=== PATIENT | male | born 1960 | race Caucasian/White ===

== ENCOUNTER 2017-06-02 09:40 | Inpatient (IN) | payer OTHER ==
[~2017-06-02] VITALS: Ht 170.2 cm; Wt 88.9 kg
[~2017-06-02 09:40] MED LIST: CENTRUM1 TA2 PO; CLINDAMYCIN HC300 MG PO; COLACE100 MG PO; ECO81 PO; FER300 PO; GLIPIZIDE10 M2 PO; GLIPIZIDE10 MG PO; LAC PO; LIPI10 PO; LISINOPRIL30 MG PO; METFORMIN HCL1000 MG PO; NORCO1 TA2 PO; PRA20 PO; THERAGRAN-M1 TA4 PO; TYLENOL EXTRA500 M2 PO; VITAMIN C500 M4 PO; ZESTRIL20 MG PO
--- NOTE | 2017-06-02 10:13 | NUR ---
PT C/O SOB, BLE EDEMA, AND ABD DISTENTION X3 MONTHS. PT IS AAOX4, RESP EVEN AND UNLABORED, RA. LS CTA ALYSSA. SPEAKING IN FULL SENTENSES. ABD NOTED TO BE FIRM AND ROUND. PT DENIES ABD PAIN, DENIES N/V/D. PT REPORTS WEIGHT GAIN OF 40LBS IN PAST 2 MONTHS WITH NO CHANGE IN DIET. PT REPEORTS HAVING KIDNEY PROBLEMS BUT DENIES LIVER PROBLEMS OR CHF. EDEMA NOTED TO BLE FROM KNEES TO FEET, PT REPORTS SLIGHT PAIN NEAR GROIN. PT RPEORTS NO URINARY PAIN OR DIFFICULTY URINATING. PT STS SEEING PCP TODAY AND BEING TOLD TO COME TO ER. PT ACCOMPANIED BY .
--- NOTE | 2017-06-02 10:27 | NUR ---
EMT AT BEDSIDE FOR EKG
--- NOTE | 2017-06-02 10:40 | NUR ---
METAL BONDING PRESS OPERATOR AT BEDSIDE FOR BLOOD DRAW
[2017-06-02 10:47] LABS: BASOPHIL % 0.2 % (0-2); PLATELET COUNT 213 x10^3mcL (130-400); RED CELL DISTRIBUTION WIDTH 14.1 % (11.5-14.5)
--- NOTE | 2017-06-02 10:59 | NUR ---
DR VELIZ AT BEDSIDE FOR MSE
[2017-06-02 11:04] LABS: CALCIUM 8.8 mg/dL (8.5-10.1); CARBON DIOXIDE 24.2 mmol/L (21-32); CREATININE SERUM 2.4 mg/dL (0.7-1.3); POTASSIUM SERUM 4.5 mmol/L (3.5-5.1)
[2017-06-02 11:08] LABS: ALBUMIN 3.7 g/dL (3.4-5.0); BILIRUBIN TOTAL 0.54 mg/dL (0.20-1.00); TOTAL PROTEIN, SERUM 7.5 g/dL (6.4-8.2)
[2017-06-02] MEDS ORDERED: LANTUS SOLOS100 U/M1 (11:19)
[2017-06-02] MEDS ORDERED: NOR5 PO (11:20)
[2017-06-02] MEDS ORDERED: ATENOLOL25 MG PO (11:20)
[2017-06-02] MEDS ORDERED: IRON325 M4 PO (11:20)
[2017-06-02] MEDS ORDERED: LASIX40 MG PO (11:21)
[2017-06-02] MEDS ORDERED: NATEGLINIDE120 M1 PO (11:21)
[2017-06-02] MEDS ORDERED: RELION HUMUL100 U/M2 (11:22)
--- NOTE | 2017-06-02 11:23 | NUR ---
MED REC UPDATED WITH PT RX BOTTLES. PT REMAINS IN STABLE CONDITION. RESP EVEN AND UNLABORED, RA. VS STABLE. NAD NOTED.
[2017-06-02 12:08] LABS: UA SPECIFIC GRAVITY 1.015 (1.005-1.035); microscopic required? YES; urine erythrocyte 2+ (NEGATIVE)
--- NOTE | 2017-06-02 12:24 | NUR ---
PT MEDICATED PER ORDER. PT IN STABLE CONDITION WITH NO C/O PAIN. VS STABLE. NAD NOTED
--- NOTE | 2017-06-02 12:25 | NUR ---
REPORT CALLED TO IVETH RAY, REQUESTING CALL BACK IN 5 MINS
--- NOTE | 2017-06-02 12:36 | NUR ---
REPORT GIVEN TO IVETH RAY IN MST FOR CONTINUITY OF CARE
--- NOTE | 2017-06-02 12:37 | NUR ---
PT AWAITING VERBAL OK TO MOVE TO MST FROM DR ESCAMILLA
--- NOTE | 2017-06-02 13:04 | NUR ---
PT REMAINS IN STABLE CONDITION. RESP EVEN AND UNLABORED, RA. VS STABLE, NAD NOTED. PT NOTED TO HAVE APPROX 300ML OUTPUT OF URINE SINCE LASIX ADMINISTRATION. PT AWAITING VERBAL OK TO MOVE TO MST FROM DR ESCAMILLA
[2017-06-02 13:22] LABS: PHOSPHOROUS 4.1 mg/dL (2.5-4.9)
[2017-06-02 13:29] LABS: T3 TOTAL 0.73 ng/mL
[2017-06-02 13:30] LABS: FREE T4 1.04 ng/dL (0.76-1.46); T4(THYROXINE) 5.5 ug/dL (4.7-13.3)
[2017-06-02 13:35] VITALS: BP 157/79
--- NOTE | 2017-06-02 13:38 | NUR ---
PT ARRIVED ON THE UNIT, A+OX4, NO RESPIRATORY DISTRESS NOTED, PLACED ON TELE #29, NSR, HR: 74, VITAL SIGNS STABLE. DENIES PAIN.
--- NOTE | 2017-06-02 13:39 | NUR ---
RECEIVED PT FROM ED VIA SANTIAGO. ORIENTED PT TO ROOM AND SURROUNDINGS. IV NOTED TO LAC PATENT AND INTACT. TELE 29 PLACED ON PT READING NSR. INSTRUCTED PT ON THE USE OF CALL LIGHT FOR ASSISTANCE. ENDORSED PT TO PRIMARY NURSE IVETH
--- NOTE | 2017-06-02 14:14 | NUR ---
PT RESTING IN BED, NO RESPIRATORY DISTRESS NOTED, DENIES PAIN, SOB, NAUSEA, AND HEADACHE.
--- NOTE | 2017-06-02 14:30 | NUR ---
INFORMED DR VALERO THAT PT WAS ADMITTED TO UNIT AND WAITING TO SEE HIM.
--- NOTE | 2017-06-02 15:01 | NUR ---
PT RESTING IN BED, NO RESPIRATORY DISTRESS NOTED, DENIES PAIN, NAUSEA, SOB, AND HEADACHE.
--- NOTE | 2017-06-02 15:50 | NUR ---
PT RESTING IN BED, NO RESPIRATORY DISTRESS NOTED, DENIES PAIN, NAUSEA, SOB, AND HEADACHE.
[2017-06-02 17:09] VITALS: BP 161/80
--- NOTE | 2017-06-02 17:15 | NUR ---
PT SITTING AT EDGE OF BED, NO RESPIRATORY DISTRESS NOTED, DENIES PAIN, NAUSEA, SOB, AND HEADACHE. PT REPORTS URINATING 9 TIMES, CLEAR, YELLOW.
--- NOTE | 2017-06-02 17:55 | NUR ---
PT RESTING IN BED, NO RESPIRATORY DISTRESS NOTED, DENIES PAIN, NAUSEA, SOB, AND HEADACHE.
--- NOTE | 2017-06-02 18:07 | NUR ---
DR VALERO NEEDS PT TO BRING IN HOME MED LIST. WILL ENDORSE TO DELIVERY TABLE OPERATOR NURSE.
--- NOTE | 2017-06-02 18:29 | NUR ---
PT SITTING AT EDGE OF BED, NO RESPIRATORY DISTRESS NOTED, DENIES PAIN, NAUSEA, SOB, AND HEADACHE. PT WROTE HOME MEDICATIONS ON [place], NURSE GAVE LIST TO DR VALERO.
--- NOTE | 2017-06-02 19:30 | NUR ---
PT LYING IN BED WITH FAMILY AT BEDSIDE, A/O X4. ON TELE #29, NSR, DENIES CHEST PAIN. PULSES PALPABLE, 2+ EDEMA NOTED TO BLE. DIMINISHED BREATH SOUNDS AUSCULTATED ON BILATERAL BASES. PT BREATHING FREELY ON RA, DENIES SOB AT THIS TIME. PT REPORTS LAST BM-06/01, DIARRHEA. ABD IS SOFT AND ROUND. BRP. AMBULATORY WITHOUT ASSIST. SKIN IS INTACT. PT DENIES PAIN AT THIS TIME. SALINE LOCK TO LAC, PATENT AND INTACT. BED IN LOWEST SETTING, SIDE RAILS UP X2, CALL LIGHT PLACED WITHIN REACH. WILL CONTINUE TO MONITOR.
[2017-06-02 21:00] VITALS: BP 160/80
[2017-06-02 21:05] LABS: RED BLOOD CELLS 3.23 M/mm3 (4.52-5.90)
[2017-06-02 21:09] LABS: IRON 33 ug/dL (65-170); TOTAL IRON BINDING CAPACITY 227 ug/dL (250-450)
[2017-06-02 21:17] VITALS: BP 160/80
[2017-06-03] VITALS (7 sets, daily range): BP systolic 114–166; BP diastolic 58–85
--- NOTE | 2017-06-03 01:50 | NUR ---
PT ASLEEP, BUT EASILY AROUSABLE. NO RESP DISTRESS NOTED, NO SIGNS OF PAIN OBSERVED. WILL CONTINUE TO MONITOR.
--- NOTE | 2017-06-03 06:05 | NUR ---
PT REPORTS SLEEPING WELL THROUGHOUT THE NIGHT. PT DENIES PAIN AND SOB AT THIS TIME. PT DENIES HAVING N/V. STRICT I/O MAINTAINED. SALINE LOCK TO LAC, PATENT AND INTACT. ALL NEEDS MET. WILL ENDORSE CARE TO AM NURSE.
[2017-06-03 06:33] LABS: BASOPHIL % 0.2 % (0-2); PLATELET COUNT 178 x10^3mcL (130-400); RED CELL DISTRIBUTION WIDTH 14.5 % (11.5-14.5)
[2017-06-03 06:36] LABS: CALCIUM 8.5 mg/dL (8.5-10.1); CARBON DIOXIDE 22.4 mmol/L (21-32); CREATININE SERUM 2.2 mg/dL (0.7-1.3); MAGNESIUM 1.9 mg/dL (1.8-2.4); PHOSPHOROUS 4.1 mg/dL (2.5-4.9); POTASSIUM SERUM 4.1 mmol/L (3.5-5.1)
--- NOTE | 2017-06-03 07:06 | NUR ---
PT SEEN, RESTING IN THE BED, ALERT AND ORIENTED, DENIES HEADACHE OR DIZZINESS, BREATHING EVEN AND UNLABORED, NO SOB, LUNG SOUNDS DIMINISHED, ON ROOM AIR WITH NO RESP DISTRESS NOTED, ON TELE#29 NSR, DENIES CHEST PAIN, SL TO LAC, PULSES PALPABLE, EDEMA NOTED TO BLE, AMBULATORY WITH STEADY GAIT, ABD SOFT AND NON-DISTENDED WITH ACTIVE BS, NO BM AT THIS TIME, VOIDING FREELY, NO DISTRESS NOTED, WILL KEEP TO MONITOR
--- NOTE | 2017-06-03 08:07 | NUR ---
PT IS SITTING UP ON THE CHAIR AND HAVING BREAKFAST, TOLERATED WELL.
--- NOTE | 2017-06-03 10:56 | NUR ---
RECEIVED REPORT FROM HARVEY RAY AT BEDSIDE. CARE ENDORSED AT THIS TIME. PT REMAINS ALERT. DENIES PAIN. TELE #29 SINUS RHYTHM. RESP 18 EVEN. BREATH SOUNDS CLEAR. NO COUGH OR SOB. PT REPORTS "SOB BETTER." ABD ROUNDED BUT SOFT, BOWEL TONES PRESENT. LBM THIS AM "LOOSE." VOIDED 600CC YELLOW URINE. EDEMA 3+ BLE. ELEVATED ON PILLOWS TO FLOAT HEELS. SALINE LOCK LAC PATENT. SIDE RAILS UP X2. CALL LIGHT IN REACH.
--- NOTE | 2017-06-03 10:56 | NUR ---
BEDSIDE HANDOFF REPORT GIVEN TO AIDEE-FLOR, PER DR VALERO PT OKAY TO SHOWER.
--- NOTE | 2017-06-03 14:43 | NUR ---
PT WAS GIVEN LOSARTAN 25MG PO; BP = 155/76, MAP = 91, HR = 66. NO SWALLOWING DIFFICULTY NOTED. WILL CONTINUE TO MONITOR.
--- NOTE | 2017-06-03 16:45 | NUR ---
LQL=[id number]. NO RISS COVERAGE DUE. MED WITH LASIX 20MG IVP DOSE INCREASED TO BID. INSTRUCTED WITH MEDICATION, SCHEDULE AND NEED TO MONITOR URINE OUTPUT AND DAILY WEIGHTS. VERBALIZED UNDERSTANDING.
--- NOTE | 2017-06-03 19:30 | NUR ---
REC'D PT RESTING IN BED. PT IS AAOX4. TELE #29 NSR. PT DENIES PAIN OR DISCOMFORT. LUNG SOUNDS DIM BASES. NO SOB NOTED. 1+ EDEMA NOTED TO BLE. BS ACTIVE X4. IV SALINE LOCK TO LAC. INTACT AND PATENT. SAFETY AND COMFORT MEASURES IN PLACE. BED IN LOWEST POSITION. CALL LIGHT WITHIN REACH. WILL CONTINUE TO MONITOR.
--- NOTE | 2017-06-04 04:52 | NUR ---
PT RESTING IN BED. NO SIGNIFICANT CHANGES DURING SHIFT. NO DISTRESS NOTED. CALL LIGHT WITHIN REACH. WILL CONTINUE TO MONITOR.
[2017-06-04 05:24] VITALS: BP 131/66
[2017-06-04 06:34] LABS: CALCIUM 8.4 mg/dL (8.5-10.1); CARBON DIOXIDE 23.5 mmol/L (21-32); CREATININE SERUM 2.4 mg/dL (0.7-1.3); POTASSIUM SERUM 4.3 mmol/L (3.5-5.1)
--- NOTE | 2017-06-04 07:30 | NUR ---
RECEIVED PT IN BED, A/A/O X 4, CALM, COOPERATIVE, ABLE TO MAKE NEEDS KNOWN. PT ON TELE # 29, SHOWING SR HR = 65, DENIES CHEST PAIN. BILATERAL RADIAL AND PEDAL PULSES PRESENT, EDEMA +1, NON-PITTING TO BLE. LUNG SOUNDS CLEAR ON BILATERAL UPPER LOBES, DIMINISHED ON BILATERAL LOWER LOBES. CHEST RISING SYMMETRICALLY, NO RESPIRATORY DISTRESS NOTED. BOWEL SOUNDS NORMOACTIVE X 4 QUADS, ABDOMEN SOFT, NON-TENDER. VOIDS FREELY, NO DYSURIA. AMBULATES WITHOUT IMPAIRMENT. SKIN CLEAR. DENIES PAIN AT THIS TIME. PT HAS SALINE LOCK @ LAC. SIDE RAILS UP X 2, LOW BED, SIDE RAILS UP X 2. WILL CONTINUE TO MONITOR.
--- NOTE | 2017-06-04 07:55 | NUR ---
DR METZGER, RESIDENTS, CHARGE NURSE, AND ASSIGNED NURSE CAME IN TO SEE PT; DISCUSSED CARE PLAN FOR TODAY, WELL POSSIBLE DISCHARGE TO HOME. PT VERBALIZED UNDERSTANDING.
--- NOTE | 2017-06-04 09:06 | NUR ---
PT RECEIVED LASIX IVP AND THE REST OF HIS PO MEDS; NO S/S DYSPHAGIA. UO=104/79, AOK=650. WILL CONTINUE TO MONITOR.
[2017-06-04 10:11] VITALS: BP 150/79
[2017-06-04] MEDS ORDERED: COZ25 PO (10:23)
[2017-06-04 10:56] VITALS: BP 150/79
--- NOTE | 2017-06-04 11:30 | NUR ---
WENT OVER D/C INSTRUCTIONS AND TEACHING WITH PT, INCLUDING DM, CKD, HTN, DIABETIC NEPHROPATHY, HYDRATION, PROPER DIET, AND EXERCISE. PT VERBALIZED UNDERSTANDING. GAVE COPY OF D/C INSTRUCTIONS.
--- NOTE | 2017-06-04 11:45 | NUR ---
PT'S CAME IN TO ACCOUNT DEVELOPER PT; PT GOT DRESSED, JONES 18G 1.25" IV CATH D/C'D FROM LAC, NO BLEEDING, REDNESS, PAIN, OR DISCOMFORT AT SITE. PRESSURE MAINTAINED FOR 5 MINUTES. COVERED SITE WITH GAUZE, SECURED WITH TAPE. PT'S ID BAND REMOVED, TELE MONITOR # 29 RETURNED TO TELE STATION. PT STATED THAT HE DOES NOT NEED W/C TO GO DOWN TO LOB. ACCOMPANIED BOTH PT AND TO [facility], PT NO AMBULATED WITHOUT IMPAIRMENT, NO S/S RESPIRATORY DISTRESS. PT [facility], AND WAS TAKEN TO A PRIVATE CAR TO GO HOME.
[2017-06-04 11:50] VITALS: Ht 170.2 cm; Wt 88.9 kg
--- NOTE | 2017-06-04 12:20 | NUR ---
RBS = 109; NO COVERAGE ON RISS REQUIRED.
== END 2017-06-04 12:00 | disposition home or self-care (01) | DRG 682 ==
LOC: ED 09:40 → DU 12:04
PROVIDERS: Emergency Medicine; Internal Medicine; ADMIT Family Medicine
DX: I12.9 Hypertensive chronic kidney disease with stage 1 through stage 4 chronic kidney disease, or unspecified chronic kidney disease (principal); N17.0 Acute kidney failure with tubular necrosis; N18.4 Chronic kidney disease, stage 4 (severe); J90 Pleural effusion, not elsewhere classified; E11.22 Type 2 diabetes mellitus with diabetic chronic kidney disease; E11.65 Type 2 diabetes mellitus with hyperglycemia; Z79.4 Long term (current) use of insulin; Z90.49 Acquired absence of other specified parts of digestive tract; Z83.3 Family history of diabetes mellitus; J45.909 Unspecified asthma, uncomplicated; E78.5 Hyperlipidemia, unspecified; R31.9 Hematuria, unspecified; D64.9 Anemia, unspecified
CPT/HCPCS: 83880; 84439; J1815; J1940; J7030; J7613; Q0092

== ENCOUNTER 2019-02-19 17:47 | Inpatient (IN) | payer OTHER ==
[~2019-02-19] VITALS: Ht 170.2 cm; Wt 93.9 kg
[~2019-02-19 17:47] MED LIST changes: +ATENOLOL25 MG PO; +COZ25 PO; +IRON325 M4 PO; +LANTUS SOLOS100 U/M1; +LASIX40 MG PO; +NATEGLINIDE120 M1 PO; +NOR5 PO; +RELION HUMUL100 U/M2
--- NOTE | 2019-02-19 18:05 | NUR ---
EKG IN PROGRESS IN TRIAGE.
--- NOTE | 2019-02-19 18:32 | NUR ---
PT AWAKE AND ALERT. PT REPORTS HAVING BILATERAL LOWER EXTREMITY PITTING EDEMA X2 WEEKS. PT DENIES SOB. PT ON FULL CM. CALL LIGHT WITHIN REACH. MSE COMPLETED BY DR COHEN.
--- NOTE | 2019-02-19 18:44 | NUR ---
OTOLARYNGOLOGIST AT BEDSIDE FOR BLOOD DRAW
[2019-02-19 19:03] LABS: BASOPHIL % 0.5 % (0-2); PLATELET COUNT 165 x10^3mcL (130-400)
[2019-02-19 19:08] LABS: RED CELL DISTRIBUTION WIDTH 17.9 % (11.5-14.5)
--- NOTE | 2019-02-19 19:08 | NUR ---
RECEIEVED PT REPORT FROM JULIO RAY. QUESTIONS AND CONCERNS ADDRESSED.
--- NOTE | 2019-02-19 19:15 | NUR ---
REPORT GIVEN TO KATELYN OIL CHANGE TECHNICIAN NURSE TO ASSUME CARE OF PT
[2019-02-19 19:23] LABS: ALBUMIN 4.2 g/dL (3.4-5.0); BILIRUBIN TOTAL 0.64 mg/dL (0.20-1.00); CALCIUM 8.8 mg/dL (8.5-10.1); CARBON DIOXIDE 22.8 mmol/L (21-32); CREATININE SERUM 3.1 mg/dL (0.7-1.3); MAGNESIUM 3.2 mg/dL (1.8-2.4); POTASSIUM SERUM 4.7 mmol/L (3.5-5.1); T4(THYROXINE) 5.8 ug/dL (4.7-13.3); TOTAL PROTEIN, SERUM 8.2 g/dL (6.4-8.2)
--- NOTE | 2019-02-19 19:39 | NUR ---
BLOOD GLUCOSE OF 55. PER DR. COHEN TO GIVE PATIENT APPLE/ORANGE JUICE AT THIS TIME. PATIENT IS A&O X4, CONVERSING AT THIS TIME WITH AT BEDSIDE. WILL MONITOR CLOSELY.
[2019-02-19 20:04] LABS: microscopic required? NO
[2019-02-19 20:29] LABS: urine erythrocyte NEGATIVE (NEGATIVE)
[2019-02-19 20:39] LABS: AMPHETAMINE QUAL UR NONE DETECTED (See below)
--- NOTE | 2019-02-19 21:04 | NUR ---
PATIENT REPORT GIVEN TO FLOR PAT. QUESTIONS AND CONCERNS ADDRESSED.
[2019-02-19] MEDS ORDERED: NAMENDA10 M2 (21:10)
[2019-02-19] MEDS ORDERED: SYN15 (21:10)
[2019-02-19] MEDS ORDERED: HYDRALAZINE HCL25 MG (21:10)
[2019-02-19 22:56] VITALS: BP 129/68
--- NOTE | 2019-02-19 23:11 | NUR ---
RECEIVED PT FROM ER. PT ADMIT FOR ANASARCA, PT IS A/O X4, VERBAL RESPONSIVE, ABLE TO TELL WHAT HE NEEDS. LUNG SOUND CLEAR BILATERAL, NO COUGH, NO SOB, PT IS ON TELE 10, NSR, DENY ANY CHEST PAIN OR DISCOMFORT, BOWEL SOUND PRESENT ALL 4 QUADARNTS, DISTENTED. PEDAL PULSE PRESENT BOTH FEET, WEAK, +3 EDEMA BLE. ALSO THERE IS TRACE EDEMA ON THE FACE AND PT C/O HIS STOMECH DISTENTED BECAUSE RETAIN THE WATER. IV AT RIGHT FA, NO LEAKING, NO INFILTRATION. ALL ADLS ASSIST, ALL NEED MET, CALL LIGHT IN REACH, WILL CONTINUE TO MONITOR.
--- NOTE | 2019-02-19 23:14 | NUR ---
RECHECK THE BLOOD SURGAR. 73 AT THIS MOMENT. WILL CONTINUE TO MONITOR. THE PT.
--- NOTE | 2019-02-19 23:33 | NUR ---
PT RESTING IN BED. EDEMA NOTED ON BLE AND TRACE EDEMA NOTED ON THE FACE. IV SALINE LOCK NOTED ON RAC. MADE PT COMFORTABLE. PLACED CALL LIGHT WITH IN REACH. WILL CONTINUE TO MONITOR.
[2019-02-20 05:38] VITALS: BP 146/69
--- NOTE | 2019-02-20 06:15 | NUR ---
PATIENTS BLOOD SUGAR 44, REPEAT 44. PT ASSYMPTOMATIC. GAVE PT D50 IVP. PT TOLERATED IT WELL. DR. TSAI NOTIFIED. WILL CONTINUE TO MONITOR.
[2019-02-20 06:41] LABS: BASOPHIL % 0.9 % (0-2); PLATELET COUNT 141 x10^3mcL (130-400)
--- NOTE | 2019-02-20 06:48 | NUR ---
BLOOD SUGAR 122 AFTER D[address]P WAS G[address] LANGSTON AT PATIENTS BEDSIDE MADE AWARE. PT STATED EDEMA ON BLE FEELS GETTING SMALLER. TRACE EDEMA ON THE FACE FEELS THE SAME PER PT. MADE PT COMFORTABLE. WILL ENDORSE TO THE AM NURSE ACCORDINGLY.
--- NOTE | 2019-02-20 07:12 | NUR ---
RECEIVED PATIENT FROM CONTAINER CRANE OPERATOR NURSE. PATIENT IS AWAKE, ALERT AND ORIENTED. TELE#10, SR, HR 78. PATIENT DENIES CHEST PAIN AND DISCOMFORT. EDEMA NOTED, +2 BLE, TRACE BUE, AND TRACE FACIAL EDEMA. ON ROOM AIR, RR EVEN AND UNLABORED, DENIES SOB. ABD IS DISTENDED AND SOFT, LAST BM 02/19. STRICT I/O'S IN PLACE: 1200 QD. IV NOTED TO RAC, SALINE LOCKED, FLUSHING WELL, NO S/S ERYTHEMA AT SITE. CALL LIGHT WITHIN EASY REACH. WILL CONTINUE PLAN OF CARE.
[2019-02-20 07:24] LABS: CALCIUM 8.5 mg/dL (8.5-10.1); CREATININE SERUM 3.1 mg/dL (0.7-1.3); MAGNESIUM 3.1 mg/dL (1.8-2.4); PHOSPHOROUS 4.5 mg/dL (2.5-4.9); POTASSIUM SERUM 4.3 mmol/L (3.5-5.1)
--- NOTE | 2019-02-20 07:54 | NUR ---
Nutrition Note: NSG trigger received for "poor PO intake > 3 days" on 02/20/19. Pt. admitted with generalized anasarca per H and P. No GI distress reported at this time; pt. does not meet high risk criteria and will be assessed as moderate risk, with initial assessment due 02/23-02/25/19.
--- NOTE | 2019-02-20 08:16 | NUR ---
DR LANGSTON PAGED REGARDING PATIENTS AM LABS: BUN 75. WILL FOLLOW UP.
--- NOTE | 2019-02-20 08:41 | NUR ---
DR LANGSTON PAGEGATED AT THIS TIME REGARDING PATIENTS BUN RESULT 75 FROM AM LABS. PENDING CALL BACK.
[2019-02-20 09:00] VITALS: BP 138/63
--- NOTE | 2019-02-20 11:37 | NUR ---
DR LANGSTON NOTIIFED OF PATIENTS BUN 75. NO FURTHER ORDERS AT THIS TIME.
[2019-02-20 12:10] VITALS: BP 157/87
--- NOTE | 2019-02-20 12:45 | NUR ---
PATIENT SITTING AT EDGE OF BED EATING LUNCH. STRICT I/O'S FOLLOWED AND PATIENTS VERBALIZES UNDERSTANDING. DENEIS SOB ON ROOM AIR. BREATHING EVEN AND UNLABORED. CALL LIGHT WITHIN EASY REACH. WILL CONTINUE TO MONITOR.
[2019-02-20 15:54] VITALS: Ht 170.2 cm; Wt 93.9 kg
[2019-02-20 17:00] VITALS: BP 140/65
--- NOTE | 2019-02-20 18:50 | NUR ---
PATIENT RESTING IN BED PEACEFULLY. DENIES SOB ON ROOM AIR. STRICT I/O'S MAINTAINED TO 1200 DAILY RESTRICT. IV SITE REMAINS INTACT TO LFA, NO S/S ERYTHEMA. NO C/O PAIN OR DISCOMFORT. WILL ENDORSE PATIENT CARE TO INTEGRITY CONSULTANT NURSE.
--- NOTE | 2019-02-20 20:00 | NUR ---
PT A/A/O X4. DENIES DIZZINESS AND HEADACHE. TRACE EDEMA NOTED ON THE FACE AND ALYSSA UPPER EXTREMITIES. BREATH SOUNDS CLEAR. BREATHING EVEN AND UNLABORED ON ROOM AIR. DENIES CHEST PAIN AND PRESSURE. BOWEL SOUNDS ACTIVE. NO C/O N/V AND ABD PAIN. PITTING EDEMA NOTED ON BLE. IV SALINE LOCK NOTED ON LEFT FORARM. MADE PT COMFORTABLR. PLACED CALL LIGHT WITH IN REACH. WILL CONTINUE TO MONITOR.
[2019-02-20 21:01] VITALS: BP 144/50
--- NOTE | 2019-02-21 00:53 | NUR ---
PT RESTING WITH EYES CLOSED. NO DISTRESS AND DISCOMFORT NOTED. WILL CONTINUE TO MONITOR.
[2019-02-21 05:48] VITALS: BP 140/58
--- NOTE | 2019-02-21 06:01 | NUR ---
PT RESTING WITH EYES CLOSED. EASILY AROUSABLE WITH VERBAL STIMULI. NO SIGNIFICANT CHANGES NOTED. IV SALINE LOCK INTACT. MADE PT COMFORTABLE. WILL ENDORSE TO THE AM NURSE ACCORDINGLY.
[2019-02-21 06:28] LABS: BASOPHIL % 0.4 % (0-2); PLATELET COUNT 147 x10^3mcL (130-400)
[2019-02-21 06:33] LABS: RED CELL DISTRIBUTION WIDTH 17.3 % (11.5-14.5)
[2019-02-21 06:34] LABS: CALCIUM 8.8 mg/dL (8.5-10.1); CARBON DIOXIDE 27.4 mmol/L (21-32); CREATININE SERUM 3.1 mg/dL (0.7-1.3); MAGNESIUM 2.9 mg/dL (1.8-2.4); POTASSIUM SERUM 4.1 mmol/L (3.5-5.1)
--- NOTE | 2019-02-21 07:15 | NUR ---
RECEIVED PT FROM NIGHT NURSE. PT RESTING IN BED, A/O X 4. NO ACUTE SIGNS OF DISTRESS NOTED. DENIES PAIN. BREATHING EVEN AND UNLABORED ON ROOM AIR. 2+ EDEMA BLE, TRACE FACIAL EDEMA AND TO BUE. SALINE LOCK AT LFA WITH NO SIGNS OF ERYTHEMA. BED IN LOWEST POSITION AND CALL LIGHT WITHIN REACH. WILL CONTINUE TO MONITOR.
[2019-02-21 07:37] VITALS: BP 175/70
[2019-02-21 12:06] VITALS: BP 148/68
[2019-02-21 13:21] VITALS: BP 148/68
--- NOTE | 2019-02-21 14:14 | NUR ---
PT DISCHARGED AT THIS TIME. A/O X 4, DENIES PAIN OR DISCOMFORT AT THIS TIME. REVIEWED DISCHARGE AND EDUCATIONAL PACKET WITH PT, INCLUDING FOLLOW UP INSTRUCTIONS, MEDICATIONS, DIET AND EXERCISE. REMOVED IV AT LFA AND APPLIED GAUZE DRESSING, IV CATHETER INTACT. TELE 10 REMOVED. PT TO BE PICKED UP BY WHO WILL ESCORT HIM FROM HIS ROOM.
--- NOTE | 2019-02-21 14:35 | NUR ---
PT AND HIS ESCORTED BY [facility] TO DISCHARGE OFFICE.
== END 2019-02-21 14:34 | disposition home or self-care (01) | DRG 469 ==
LOC: ED 17:47 → DU 20:44
PROVIDERS: Emergency Medicine; ADMIT Internal Medicine
DX: N17.9 Acute kidney failure, unspecified (principal); J90 Pleural effusion, not elsewhere classified; E11.22 Type 2 diabetes mellitus with diabetic chronic kidney disease; E11.649 Type 2 diabetes mellitus with hypoglycemia without coma; E11.65 Type 2 diabetes mellitus with hyperglycemia; I12.9 Hypertensive chronic kidney disease with stage 1 through stage 4 chronic kidney disease, or unspecified chronic kidney disease; N18.4 Chronic kidney disease, stage 4 (severe); E66.9 Obesity, unspecified; E83.41 Hypermagnesemia; E03.9 Hypothyroidism, unspecified; E78.5 Hyperlipidemia, unspecified; Z79.4 Long term (current) use of insulin; Z68.32 Body mass index [BMI] 32.0-32.9, adult; E78.00 Pure hypercholesterolemia, unspecified; Z90.49 Acquired absence of other specified parts of digestive tract; Z83.3 Family history of diabetes mellitus; D63.8 Anemia in other chronic diseases classified elsewhere
CPT/HCPCS: 82962; 83880; 90658; 90732; J1940; J3490; Q0092

== ENCOUNTER 2020-08-04 11:32 | Emergency (ER) | payer OTHER ==
[~2020-08-04] VITALS: Ht 170.2 cm; Wt 73.9 kg
[~2020-08-04 11:32] MED LIST changes: +HYDRALAZINE HCL25 MG; +NAMENDA10 M2; +SYN15
[2020-08-04 11:44] VITALS: Ht 170.2 cm; Wt 73.9 kg
[2020-08-04 13:33] LABS: BASOPHIL % 0.9 % (0-2); PLATELET COUNT 200 x10^3mcL (130-400); RED CELL DISTRIBUTION WIDTH 13.4 % (11.5-14.5)
[2020-08-04 13:45] LABS: ALBUMIN 3.6 g/dL (3.4-5.0); BILIRUBIN TOTAL 0.57 mg/dL (0.20-1.00); C REACTIVE PROTEIN 7.3 mg/dL (<=0.9); CREATININE SERUM 3.9 mg/dL (0.7-1.3); POTASSIUM SERUM 3.9 mmol/L (3.5-5.1); TOTAL PROTEIN, SERUM 7.8 g/dL (6.4-8.2); URIC ACID 11.6 mg/dL (3.5-7.2)
[2020-08-04 15:37] VITALS: BP 151/68
== END 2020-08-04 15:37 | disposition home or self-care (01) ==
LOC: ED 11:32
PROVIDERS: Emergency Medicine
DX: M10.9 Gout, unspecified (principal); M25.521 Pain in right elbow; E11.22 Type 2 diabetes mellitus with diabetic chronic kidney disease; I12.9 Hypertensive chronic kidney disease with stage 1 through stage 4 chronic kidney disease, or unspecified chronic kidney disease; N18.9 Chronic kidney disease, unspecified; E78.00 Pure hypercholesterolemia, unspecified; Z98.890 Other specified postprocedural states
CPT/HCPCS: J0696; J1885; J7030; J7060